=== PATIENT | male | born 1935 | race Hispanic/Latino ===

== ENCOUNTER 2018-07-01 17:10 | Emergency (ER) | payer MEDICARE ==
[~2018-07-01 17:10] MED LIST: ISOVUE-370 76%-LOCM 1 ML ONE
[2018-07-01 18:13] LABS: #Eosinphils 0.1 thou/uL (0.0-0.7); #Lymphocytes 1.5 thou/uL (1.20-3.40); #Monocytes 0.4 thou/uL (0.11-0.59); %Eosinophils 1.3 % (0.0-10.0); %Lymphocytes 21.1 % (21.0-51.0); %Monocytes 5.2 % (0.0-10.0); %Neutrophils 72.3 % (42.0-75.0); Hemoglobin 14.3 g/dL (14.0-18.0); Mean Corpuscular HGB CONC 33.6 g/dL (32.0-36.0); Mean Corpuscular Hemoglobin 27.8 pg (27.0-31.0); Mean Corpuscular Volume 82.8 fL (78.0-98.0); Mean Platelet Volume 6.8 fL (7.4-10.4); Platelet Count 237 thou/uL (130-400); RBC Distribution Width 13.8 % (11.5-14.5); Red Blood Cell (RBC) Count 5.12 mill/uL (4.70-6.10); White Blood Cell (WBC) Count 6.9 thou/uL (4.8-10.8)
[2018-07-01 18:38] LABS: ALT (SGPT) 30 U/L (8-55); AST (SGOT) 25 U/L (5-34); Albumin 4.7 g/dL (3.4-4.8); Alkaline Phosphatase 153 U/L (40-150); Anion Gap 17 mmol/L (10-20); BUN (Urea Nitrogen) 19 mg/dL (8.4-25.7); Bilirubin, Total 0.5 mg/dL (0.2-1.2); CK (CPK) 450 U/L (30-200); Calc. Creatinine Clearance 0 mL/min (70-130); Calcium 9.7 mg/dL (7.8-10.44); Carbon Dioxide 28 mmol/L (23-31); Chloride 95 mmol/L (98-107); Estimated GFR-MDRD 70; Globulin 4.2 g/dL (2.4-3.5); Glucose 201 mg/dL (83-110); Potassium 4.7 mmol/L (3.5-5.1); Protein, Total 8.9 g/dL (5.8-8.1); Sodium 135 mmol/L (136-145)
--- NOTE | 2018-07-01 19:40 | RAD ---
EXAM: CHEST TWO VIEWS: 07/01/18 HISTORY: Chest pain for two weeks. COMPARISON: None. FINDINGS: Heart size is within normal limits. Minimal increased markings in the right base which have more of a chronic appearance. No confluent pneumonia, overt edema, or pleural effusion. Mild dextroscoliosis o f the upper thoracic vertebral column. IMPRESSION: No acute intrathoracic disease. No evidence for pneumonia. Mild atherosclerosis of the aorta. POS: [facility]
[2018-07-01 21:43] LABS: Troponin I Less than 0.010 ng/mL (< 0.028)
--- NOTE | 2018-07-01 22:14 | CT ---
CHEST CT ANGIOGRAM WITH 3D RENDERING ABDOMEN CT ANGIOGRAM WITH 3D RENDERIN07/01/18 HISTORY: Intermittent chest pain for several months. Dizziness. CT angiogram chest and CT angiogram abdomen is performed including 3D rendering. There is a fairly prominent diffuse nonspecific mosaic appearance to the chest but without evidence f or overt confluent pneumonia, pleural effusion, or pericardial effusion. There is no evidence for aor tic aneurysm or dissection. No CT evidence for a central pulmonary artery thrombosis. Small hiatal he rnia. Right renal cyst. No evidence for abdominal aortic aneurysm or dissection. There are scattered areas of arterial vascular calcification. IMPRESSION: No CT evidence for aortic aneurysm or dissection. No central pulmonary artery thrombosis. No evidence of abdominal aortic aneurysm or dissection. Prominent nonspecific bilateral mosaic appearance to the chest. No confluent pneumonia or pleural effusion. Other findings as above. POS: [facility]
== END 2018-07-01 23:00 | disposition home or self-care (01) ==
LOC: ERS 17:10
DX: R07.89 Other chest pain (principal); E11.9 Type 2 diabetes mellitus without complications; Z79.82 Long term (current) use of aspirin; Z79.84 Long term (current) use of oral hypoglycemic drugs
CPT/HCPCS: 36415; 71046; 71275; 80053; 82550; 84484; 85025; 85379; 93005

== ENCOUNTER 2018-07-09 12:09 | Emergency (ER) | payer MEDICAID, MEDICARE ==
[2018-07-09] MEDS ORDERED: Lidocaine 2% Viscous Solution 10 ML, Aluminum & Magnesium Hydroxide 30 ML SSW SCH (13:00)
[2018-07-09 13:14] LABS: PTT 30.4 SEC (22.9-36.1)
[2018-07-09 13:15] LABS: #Eosinphils 0.1 thou/uL (0.0-0.7); #Lymphocytes 1.2 thou/uL (1.20-3.40); #Monocytes 0.4 thou/uL (0.11-0.59); #Neutrophils 5.3 thou/uL (1.40-6.50); %Basophils 0.1 % (0.0-1.0); %Eosinophils 0.9 % (0.0-10.0); %Monocytes 6.2 % (0.0-10.0); %Neutrophils 75.8 % (42.0-75.0); Hemoglobin 12.4 g/dL (14.0-18.0); Mean Corpuscular HGB CONC 33.7 g/dL (32.0-36.0); Mean Corpuscular Hemoglobin 28.1 pg (27.0-31.0); Mean Corpuscular Volume 83.5 fL (78.0-98.0); Mean Platelet Volume 5.1 fL (7.4-10.4); Platelet Count 187 thou/uL (130-400); RBC Distribution Width 14.1 % (11.5-14.5); Red Blood Cell (RBC) Count 4.42 mill/uL (4.70-6.10)
[2018-07-09 13:29] LABS: ALT (SGPT) 26 U/L (8-55); AST (SGOT) 21 U/L (5-34); Alkaline Phosphatase 138 U/L (40-150); Anion Gap 15 mmol/L (10-20); BUN (Urea Nitrogen) 16 mg/dL (8.4-25.7); Bilirubin, Total 0.4 mg/dL (0.2-1.2); Calc. Creatinine Clearance 0 mL/min (70-130); Calcium 9.1 mg/dL (7.8-10.44); Carbon Dioxide 26 mmol/L (23-31); Chloride 95 mmol/L (98-107); Estimated GFR-MDRD 67; Globulin 3.4 g/dL (2.4-3.5); Glucose 242 mg/dL (83-110); Lipase 100 U/L (8-78); Potassium 4.5 mmol/L (3.5-5.1); Protein, Total 7.4 g/dL (5.8-8.1); Sodium 131 mmol/L (136-145)
[2018-07-09 13:44] LABS: INR-International Normal Ratio 1.1; Prothrombin Time 14.2 SEC (12.0-14.7)
--- NOTE | 2018-07-09 13:55 | RAD ---
CHEST 1 VIEW: Date: 07/09/18 COMPARISON: 04/28/18 study. HISTORY: Chest pain. FINDINGS: Heart size is borderline. Aorta is tortuous. The lungs are clear of any infiltrative process. IMPRESSION: Borderline heart size. No acute findings. POS: [facility]
== END 2018-07-09 15:44 | disposition home or self-care (01) ==
LOC: ERS 12:09
DX: K29.70 Gastritis, unspecified, without bleeding (principal); R07.89 Other chest pain; E11.9 Type 2 diabetes mellitus without complications; I10 Essential (primary) hypertension
CPT/HCPCS: 36415; 71045; 80053; 83605; 83690; 83880; 84484; 85025; 85610; 85730; 93005

== ENCOUNTER 2018-07-13 12:59 | Emergency (ER) | payer MEDICARE ==
--- NOTE | 2018-07-13 15:28 | RAD ---
PA CHEST: Date: 07/13/18 HISTORY: Nausea and vomiting. FINDINGS: Lung coronado are clear. Heart and mediastinum unremarkable. Vasculature is normal. IMPRESSION: Unremarkable chest. POS: C
[2018-07-13 15:31] LABS: #Eosinphils 0.1 thou/uL (0.0-0.7); #Lymphocytes 1.2 thou/uL (1.20-3.40); #Monocytes 0.6 thou/uL (0.11-0.59); #Neutrophils 5.4 thou/uL (1.40-6.50); %Basophils 0.2 % (0.0-1.0); %Lymphocytes 17.1 % (21.0-51.0); %Monocytes 7.7 % (0.0-10.0); Hemoglobin 13.4 g/dL (14.0-18.0); Mean Corpuscular Hemoglobin 28.4 pg (27.0-31.0); Mean Corpuscular Volume 86.2 fL (78.0-98.0); Mean Platelet Volume 7.5 fL (7.4-10.4); Platelet Count 204 thou/uL (130-400); RBC Distribution Width 14.7 % (11.5-14.5); Red Blood Cell (RBC) Count 4.72 mill/uL (4.70-6.10); White Blood Cell (WBC) Count 7.3 thou/uL (4.8-10.8)
[2018-07-13 15:41] LABS: ALT (SGPT) 29 U/L (8-55); AST (SGOT) 25 U/L (5-34); Albumin 4.3 g/dL (3.4-4.8); Alkaline Phosphatase 115 U/L (40-150); Anion Gap 18 mmol/L (10-20); BUN (Urea Nitrogen) 22 mg/dL (8.4-25.7); Bilirubin, Total 0.8 mg/dL (0.2-1.2); Calc. Creatinine Clearance 0 mL/min (70-130); Calcium 8.7 mg/dL (7.8-10.44); Carbon Dioxide 22 mmol/L (23-31); Chloride 95 mmol/L (98-107); Estimated GFR-MDRD 70; Globulin 3.6 g/dL (2.4-3.5); Glucose 196 mg/dL (83-110); Lipase 52 U/L (8-78); Potassium 4.4 mmol/L (3.5-5.1); Protein, Total 7.9 g/dL (5.8-8.1); Sodium 131 mmol/L (136-145)
--- NOTE | 2018-07-16 23:34 | EKG ---
Test Reason : Blood Pressure : / mmHG Vent. Rate : 077 BPM Atrial Rate : 077 BPM P-R Int : 148 ms QRS Dur : 088 ms QT Int : 386 ms P-R-T Axes : 025 002 018 degrees QTc Int : 436 ms Normal sinus rhythm with sinus arrhythmia Normal ECG Confirmed by YAKOV BIRCH DO ([id number]), editorial assistant VIJAYA PAYNE ([id number]) on 07/16/2018 11:33:30 PM Referred By: Confirmed By:YAKOV BIRCH DO
== END 2018-07-13 17:27 | disposition home or self-care (01) ==
LOC: ERS 12:59
DX: R11.2 Nausea with vomiting, unspecified (principal); N50.819 Testicular pain, unspecified; R05 Cough; E11.9 Type 2 diabetes mellitus without complications; I10 Essential (primary) hypertension
CPT/HCPCS: 36415; 71045; 80053; 83690; 84484; 85025; 93005

== ENCOUNTER 2018-08-16 12:55 | Outpatient (CLI) | payer MEDICARE ==
[~2018-08-16 12:55] MED LIST changes: -ISOVUE-370 76%-LOCM 1 ML ONE; +Iopamidol 370 76% 100 ML VIAL ONE
--- NOTE | 2018-08-16 14:09 | RAD ---
TWO VIEWS CHEST: Comparison: 07-13-18 History: Abdominal pain. FINDINGS: Two views of the chest show normal sized cardiomediastinal silhouette. There is no evidence of consol idation, mass, or pleural effusion. The bones are unremarkable. IMPRESSION: No evidence of acute cardiopulmonary disease. POS: [facility]
--- NOTE | 2018-08-16 14:28 | RAD ---
KUB: History: Abdominal pain. FINDINGS: The bowel gas pattern is nonobstructed. There is a moderate amount stool within the right colon. No r adiopaque calculi are seen. Vascular calcifications are noted. Surgical clips are seen in the pelvis. Marked arthritic changes of the spine are present. IMPRESSION: No acute changes. POS: [facility]
--- NOTE | 2018-08-16 15:56 | CT ---
CT OF ABDOMEN AND PELVIS PERFORMED WITH AND WITHOUT CONTRAST ENHANCEMENT: History: Abdominal pain, more right sided. Comparison: CT aortic dissection protocol, 07-01-18 which included the chest and abdomen. FINDINGS: The lung bases show some ground glass opacity in both lung coronado. The liver, spleen, pancreas, and gallbladder regions all appear unremarkable. Right and left adrenal glands and right and left kidneys are normal in size. Small hypodense lesion i nvolving the right kidney is compatible with a small cyst. No renal calculi are seen. No significant periaortic or mesenteric adenopathy noted. The proximal jejunum is actually to the right of midline b ut there is no obstruction associated with this and it is a stable finding as compared to the prior e xamination. It would be of questionable clinical significance. CT OF PELVIS PERFORMED WITH AND WITHOUT CONTRAST ENHANCEMENT: No evidence of any adenopathy, mass, or free fluid. There are arthritic changes of the spine and hips noted. IMPRESSION: 1. No acute abnormality of the abdomen or pelvis. 2. Small right renal cyst. 3. Nonspecific ground glass opacity in both lung bases. 4. Small hiatal hernia. 5. Incidental is note is made of the jejunum and proximal ileum are actually to the right of midline in the right upper quadrant but there is no significant twisting in the mesentery vessels or signs of obstruction associated with this and would be somewhat doubtful as to being a cause of pain. POS: [facility]
[2018-08-19 08:26] LABS: Estimated GFR-MDRD - POC Greater than 90
== END 2018-08-16 12:56 | disposition home or self-care (01) ==
LOC: RAD 12:55
PROVIDERS: ATTEND Family Medicine
DX: R10.9 Unspecified abdominal pain (principal); N28.1 Cyst of kidney, acquired; R91.8 Other nonspecific abnormal finding of lung field; K44.9 Diaphragmatic hernia without obstruction or gangrene
CPT/HCPCS: 71046; 74018; 74178; Q9967

== ENCOUNTER 2018-10-04 10:20 | Day surgery (SDC) | payer MEDICARE ==
--- NOTE | 2018-10-04 10:52 | HP ---
HISTORY OF PRESENT ILLNESS: This is an 83-year-old male with abdominal pain, nausea. The patient complains of chronic dyspepsia and indigestion over the last several years. His symptoms are worse over the last one year. He has abdominal pain in the epigastric area. It is mild. It is localized. It is a moderate discomfort. He has a history of recurrent belching and bloating, etc. After he eats a few bites, he has abdominal discomfort, abdominal bloating and swelling. He is not able to eat a good meal because of the above reasons. The patient with dysphagia and odynophagia. He comes in for EGD because of chronic dyspepsia. ALLERGIES: NONE. SOCIAL HISTORY: The patient is a former smoker. He had chronic alcohol intake 20 years ago. MEDICAL ILLNESS: 1. Hypertension. 2. Diabetes. 3. Osteoarthritis. 4. Hyperlipidemia. 5. Acid reflux. 6. Muscle spasm. 7. Hernia repair and also has had a prostatectomy for noncancerous prostate enlargement. PHYSICAL EXAMINATION: GENERAL: He appears comfortable. VITAL SIGNS: His weight is 168 pounds. Pulse is 70, blood pressure 130/80. HEENT: Conjunctivae clear. NECK: Supple. No adenitis or thyromegaly noted. CARDIOVASCULAR: First and second heart sounds heard. LUNGS: Clear to auscultation. ABDOMEN: Soft. No organomegaly. Abdomen is mildly tender in the epigastric area. There is no rebound or guarding. Bowel sounds normal. ADMITTING DIAGNOSES: Abdominal pain, dyspepsia. PLAN: EGD and abdominal sonogram. Job ID: [id number]
[2018-10-04] MEDS ORDERED: PROPOFOL 200 MG/20 ML VIAL ONE (13:34)
--- NOTE | 2018-10-04 17:27 | OP ---
DATE OF PROCEDURE: 10/04/2018 PROCEDURE PERFORMED: Esophagogastroduodenoscopy with biopsy. PREOPERATIVE DIAGNOSIS: An 83-year-old male with abdominal pain, dyspepsia, and abdominal bloating. The patient is undergoing EGD. POSTOPERATIVE DIAGNOSES: 1. Normal esophagus. 2. Small hiatal hernia. 3. Sessile gastric polyp over the gastric body. 4. Antral gastritis. DESCRIPTION OF PROCEDURE: The patient was placed on his left lateral position and was given sedation by Anesthesia Department. Again, Pentax video gastroscope under direct vision passed down the oropharynx past the GE junction into the stomach and subsequently into the descending duodenum. The vocal cords appeared healthy. The esophageal mucosa appeared normal throughout. In the GE junction, no pathology was seen. A small hiatal hernia. Retroflexion failed to show any pathology in the fundus and cardia. Over the gastric body, the patient was found to have a 1-cm size sessile polyp. The polyp was removed with biopsy forceps. The gastric antrum showed focal areas of edema and erythema. Biopsy was obtained of the gastric antrum and the gastric body. In the duodenal bulb and descending duodenum, no pathology. The stomach decompressed, and the scope removed. IMPRESSION: This is an 83-year-old male with abdominal pain, dyspepsia, and abdominal bloating. The EGD showed a gastric polyp and antral gastritis. There is no other pathology seen. DISCHARGE PLANNIN. Obtain abdominal sonogram. 2. Await gastric biopsy before making recommendations. Job ID: [id number]
== END 2018-10-04 12:12 | disposition home or self-care (01) ==
LOC: SDC 10:20
PROVIDERS: ATTEND Internal Medicine Gastroenterology
PROC: 0DB68ZX Excision of Stomach, Via Natural or Artificial Opening Endoscopic, Diagnostic (ICD-10-PCS; principal; 2018-10-04)
DX: K31.7 Polyp of stomach and duodenum (principal); K29.50 Unspecified chronic gastritis without bleeding; K44.9 Diaphragmatic hernia without obstruction or gangrene; I10 Essential (primary) hypertension; E11.9 Type 2 diabetes mellitus without complications; M19.90 Unspecified osteoarthritis, unspecified site; E78.5 Hyperlipidemia, unspecified; K21.9 Gastro-esophageal reflux disease without esophagitis; Z87.891 Personal history of nicotine dependence
CPT/HCPCS: 88305; 88312; J2704

== ENCOUNTER 2019-02-14 18:05 | Observation (INO) | payer MEDICARE ==
[2019-02-14 18:46] LABS: #Eosinphils 0.3 thou/uL (0.0-0.7); #Lymphocytes 1.7 thou/uL (1.20-3.40); #Monocytes 0.6 thou/uL (0.11-0.59); #Neutrophils 5.8 thou/uL (1.40-6.50); %Basophils 0.1 % (0.0-1.0); %Eosinophils 3.7 % (0.0-10.0); %Monocytes 6.8 % (0.0-10.0); %Neutrophils 69.4 % (42.0-75.0); Hemoglobin 11.8 g/dL (14.0-18.0); Mean Corpuscular HGB CONC 34.1 g/dL (32.0-36.0); Mean Corpuscular Hemoglobin 28.2 pg (27.0-31.0); Mean Corpuscular Volume 82.6 fL (78.0-98.0); Mean Platelet Volume 6.9 fL (7.4-10.4); Platelet Count 282 thou/uL (130-400); RBC Distribution Width 14.4 % (11.5-14.5); Red Blood Cell (RBC) Count 4.21 mill/uL (4.70-6.10); White Blood Cell (WBC) Count 8.4 thou/uL (4.8-10.8)
--- NOTE | 2019-02-14 18:49 | RAD ---
CHEST ONE VIEW: 02/14/19 HISTORY: Chest pain. COMPARISON: Radiograph 08/16/18. FINDINGS: Heart size is enlarged. The pulmonary arteries are dilated. No pneumothorax. No effusion. No acute os seous abnormality. Degenerative changes of the shoulders. IMPRESSION: Cardiomegaly and pulmonary arterial hypertension. POS: [facility]
[2019-02-14 19:08] LABS: ALT (SGPT) 18 U/L (8-55); AST (SGOT) 15 U/L (5-34); Albumin 4.1 g/dL (3.4-4.8); Alkaline Phosphatase 118 U/L (40-150); Anion Gap 15 mmol/L (10-20); BUN (Urea Nitrogen) 19 mg/dL (8.4-25.7); Bilirubin, Total 0.4 mg/dL (0.2-1.2); Calc. Creatinine Clearance 0 mL/min (70-130); Calcium 9.2 mg/dL (7.8-10.44); Carbon Dioxide 22 mmol/L (23-31); Chloride 102 mmol/L (98-107); Estimated GFR-MDRD 52; Globulin 4.1 g/dL (2.4-3.5); Glucose 222 mg/dL (83-110); Potassium 4.3 mmol/L (3.5-5.1); Protein, Total 8.2 g/dL (5.8-8.1); Sodium 135 mmol/L (136-145)
[2019-02-14] MEDS ORDERED: Meclizine HCl 25 MG TAB ONE (19:14)
[2019-02-14] MEDS ORDERED: Aspirin 325 MG TAB ONE (19:14)
--- NOTE | 2019-02-14 19:21 | CT ---
CT Brain WO Con History: Vertigo Comparison: CT brain 2011 Findings: High-grade atrophy. No acute hemorrhage or infarct. No midline shift or mass effect. Paranasal sinuses and mastoids are clear. Scalp soft tissues are unremarkable. Impression: No acute intracranial abnormality.
--- NOTE | 2019-02-14 22:08 | HP ---
PRIMARY CARE PHYSICIAN: [facility]. REASON FOR ADMISSION: Dizziness and chest pain. HISTORY OF PRESENT ILLNESS: An 83-year-old male, who was brought to emergency room with a complaint of dizziness. Patient was brought to ER and subsequently, he was discharged. He also had chest pain. Patient was feeling as if drunk. He was not able to maintain his balance. He was experiencing nausea, but no vomiting. He denied any headache, blurred vision, or diplopia. He denies any tinnitus. He denies any ear pain. He was not having any focal motor weakness on either extremity or paresthesia in either extremity. This morning, he also reported chest pain which was generalized, associated with nausea, but no vomiting. He denied any radiation of pain. He denies any associated palpitation or shortness of breath. He did not have any fever, chills, cough, or UTI symptoms. He did not have any constipation, diarrhea, melena, or hematochezia. Today, in the emergency room, routine blood test showed acute kidney injury. He was relatively hypotensive. He was given IV fluid and after that he was feeling much better. Patient is being admitted for further evaluation. PAST MEDICAL HISTORY: Diabetes, type 2; hypertension; hiatal hernia; osteoarthritis; and gastroesophageal reflux disease. PAST SURGICAL HISTORY: EGD and colonoscopy by Dr. Mercer, prostatectomy, and hernia repair. PAST PSYCHIATRIC HISTORY: Reviewed and negative. SOCIAL HISTORY: Patient is a former smoker. He denies any tobacco or alcohol abuse currently. He lives at home with family. FAMILY HISTORY: No strong family history of premature coronary artery disease, stroke, or cancer. ALLERGIES: NO KNOWN DRUG ALLERGIES. CURRENT HOME MEDICATIONS: Patient did not bring his medications, so unable to review at this point. EMERGENCY ROOM COURSE: Patient received IV fluid, meclizine, and aspirin. REVIEW OF SYSTEMS: CONSTITUTIONAL: Negative for weight loss or gain, ability to conduct usual activities. SKIN: Negative for rash, itching. EYES: Negative for double vision, pain. ENT/MOUTH: Negative for nose bleeding, neck stiffness, pain, tenderness. CARDIOVASCULAR: Negative for palpitations, dyspnea on exertion, orthopnea. RESPIRATORY: Negative for shortness of breath, wheezing, cough, hemoptysis, fever or night sweats. GASTROINTESTINAL: Negative for poor appetite, abdominal pain, heartburn, nausea , vomiting, constipation, or diarrhea. GENITOURINARY: Negative for urgency, frequency, dysuria, nocturia. MUSCULOSKELETAL: Negative for pain, swelling. NEUROLOGIC/PSYCHIATRIC: Negative for anxiety, depression. ALLERGY/IMMUNOLOGIC: Negative for skin rash, bleeding tendency. Please see my HPI for pertinent positives and negatives. All other review of systems reviewed and negative except as mentioned in the HPI. PHYSICAL EXAMINATION: VITAL SIGNS: On arrival, blood pressure 82/57, pulse 94, respiratory rate 20, temperature 98.4, and saturation 96% on room air. Weight 81.6 kg. GENERAL: Patient is currently alert and oriented. No obvious acute distress. HEENT: Head; normocephalic and atraumatic. Eyes; pupils round and reactive to light. No nystagmus. Extraocular muscle intact. ENT; oropharynx within normal limits. Moist mucous membranes. No oral lesion. No pharyngeal erythema. No exudate. NECK: Supple. No JVD. No thyromegaly. No carotid bruit. No jugular venous distention. LUNGS: Clear to auscultation without any rhonchi or rales. CARDIAC: S1, S2 regular. No murmur. No gallop. No rub. ABDOMEN: Soft. Bowel sounds present. Nontender. Nondistended. No organomegaly. No mass. No suprapubic tenderness. BACK EXAMINATION: Unremarkable. No CVA tenderness. EXTREMITIES: Upper extremity; passive movement of all joints are normal. Lower extremity; no edema. Good distal pulsation. SKIN: No skin rash. HEMATOLOGICAL: No lymphadenopathy. PSYCHIATRIC: Normal affect. NEUROLOGIC: Patient is alert and oriented x3. Cranial nerves 2 through 12 intact. Motor 5/5 in all 4 limbs. Sensation intact. Reflexes symmetrical. No cerebellar signs noted. SIGNIFICANT LABORATORY DATA: EKG showing normal sinus rhythm, LVH. CT brain based on my review no acute intracranial process. Chest x-ray showing cardiomegaly and pulmonary arterial hypertension. CBC; WBC 8.4, hemoglobin 11.8, and platelet 282. BMP; sodium 135, potassium 4.3 , chloride 102, carbon dioxide 22, anion gap 15, BUN 19, creatinine 1.32, glucose 222, calcium 9.2, and magnesium 2.0. LFT; AST 15, ALT 18, alkaline phosphatase 118, and albumin 4.1. Troponin negative and BNP 30.2. ASSESSMENT AND PLAN: 1. Vertigo, most likely benign positional vertigo. The patient has responded to meclizine. Orthostatic hypotension is also in differential. Cerebellar etiology less likely, but patient has multiple risk factors for cerebellar etiology and that is why he will be admitted for observation to do more investigation. While in hospital, we will check orthostatic vitals to rule out orthostatic hypotension. We will obtain MRI brain and echocardiography as a part of workup to rule out any posterior circulation problem. We will continue with meclizine 25 mg p.o. t.i.d. p.r.n. Patient will need PT evaluation. We will also monitor on telemetry floor for rule out any arrhythmias. 2. Chest pain. We will do serial cardiac enzymes x3. Currently, troponin is negative. EKG is nondiagnostic. Patient will have another two sets of cardiac enzymes. We will check lipid profile, echocardiography, and we will continue with aspirin 325 mg p.o. daily. 3. Acute kidney injury, most likely due to hypotension. Patient will be given IV fluid with NS at 100 mL/h and we will repeat BMP tomorrow. 4. Diabetes, type 2. We will continue with insulin as per sliding scale protocol. Diabetic diet will be given. 5. History of hypertension. We will rule out orthostatic hypotension. Because of low blood pressure, we will hold on blood pressure medication. 6. Anemia, normocytic and normochromic. Patient will need multivitamin and iron supplement upon discharge. We will repeat CBC tomorrow. 7. Deep venous thrombosis prophylaxis not needed because we are expecting discharge in 24 hours. 8. Gastrointestinal prophylaxis. Pepcid 20 mg p.o. daily. CODE STATUS: Patient is full code. DISPOSITION PLAN: Based on above-mentioned investigation result. Plan of care discussed with the patient in detail. Job ID: [id number] [facility]
[2019-02-14 22:17] LABS: Troponin I Less than 0.010 ng/mL (< 0.028)
[2019-02-15] MEDS ORDERED: HumaLOG 300 UNITS/3 ML VIAL SC PRN (00:17)
[2019-02-15] MEDS ORDERED: Bisacodyl 10 MG SUPP PR PRN (00:17)
[2019-02-15] MEDS ORDERED: Meclizine HCl 25 MG TAB PO PRN (00:17)
[2019-02-15] MEDS ORDERED: Guaifenesin DM 100-10/5 ML UDCUP PO PRN (00:17)
[2019-02-15] MEDS ORDERED: Dextrose 5% in Water 1,000 ML IV PRN (00:17)
[2019-02-15] MEDS ORDERED: Loperamide HCl 2 MG CAP PO PRN (00:17)
[2019-02-15] MEDS ORDERED: Ondansetron PF 4 MG/2 ML Vial IVP PRN (00:17)
[2019-02-15] MEDS ORDERED: Senokot S 8.6-50 MG TAB PO PRN (00:17)
[2019-02-15] MEDS ORDERED: Dextrose 50% Abboject 50 ML SYRINGE SLOW IVP PRN (00:17)
[2019-02-15] MEDS ORDERED: HYDROcodone/Acetaminophen 5/325 mg Tablet PO PRN (00:17)
[2019-02-15] MEDS ORDERED: Ondansetron ODT 4 MG TAB PO PRN (00:17)
[2019-02-15] MEDS ORDERED: Acetaminophen 325 MG TAB PO PRN (00:17)
[2019-02-15] MEDS ORDERED: Calcium Carbonate 500 MG ChewTAB PO PRN (00:17)
[2019-02-15] MEDS ORDERED: Zolpidem Tartrate 5 MG TAB PO PRN (00:17)
[2019-02-15 01:41] LABS: Troponin I Less than 0.010 ng/mL (< 0.028)
[2019-02-15 02:13] VITALS: BMI 28.5
[2019-02-15 05:06] LABS: #Eosinphils 0.3 thou/uL (0.0-0.7); #Lymphocytes 1.7 thou/uL (1.20-3.40); #Monocytes 0.6 thou/uL (0.11-0.59); #Neutrophils 4.3 thou/uL (1.40-6.50); %Eosinophils 3.9 % (0.0-10.0); %Monocytes 8.3 % (0.0-10.0); %Neutrophils 62.8 % (42.0-75.0); Hemoglobin 9.9 g/dL (14.0-18.0); Mean Corpuscular Hemoglobin 28.2 pg (27.0-31.0); Mean Corpuscular Volume 83.1 fL (78.0-98.0); Mean Platelet Volume 6.8 fL (7.4-10.4); Platelet Count 190 thou/uL (130-400); RBC Distribution Width 14.3 % (11.5-14.5); Red Blood Cell (RBC) Count 3.49 mill/uL (4.70-6.10); White Blood Cell (WBC) Count 6.8 thou/uL (4.8-10.8)
[2019-02-15 05:25] LABS: Anion Gap 12 mmol/L (10-20); BUN (Urea Nitrogen) 27 mg/dL (8.4-25.7); Calc. Creatinine Clearance 56 mL/min (70-130); Calcium 8.6 mg/dL (7.8-10.44); Carbon Dioxide 24 mmol/L (23-31); Cardiac Risk 4.9 (Less than 4.5); Chloride 105 mmol/L (98-107); Cholesterol 141 mg/dl (< 200 Desired); Estimated GFR-MDRD 65; Glucose 215 mg/dL (83-110); HDL Cholesterol 29 mg/dL (>60 Neg Risk); LDL Cholesterol, Calculated 80 mg/dL; Potassium 3.9 mmol/L (3.5-5.1); Sodium 137 mmol/L (136-145); Triglycerides 160 mg/dL (Less than 150)
[2019-02-15] MEDS: Sodium Chloride 0.9% 1,000 ML IV SCH ×2 (06:09→19:04)
[2019-02-15] MEDS: HumaLOG 300 UNITS/3 ML VIAL SC PRN ×3 (06:09→17:39)
--- NOTE | 2019-02-15 08:41 | MRI ---
MRI BRAIN WITHOUT CONTRAST: INDICATIONS: Stroke. COMPARISON: Brain CT from 02/14/2019. FINDINGS: There is moderate cortical volume loss. Mild chronic ischemic white matter change. No evidence of r estricted diffusion. No mass or edema. No evidence of hemorrhage. The intracranial internal carotid arteries and cerebral arteries show expected flow voids. Basilar a rtery is patent. Dural venous sinuses appear patent. Mild mucosal edema in the left maxillary sinus. IMPRESSION: 1. Moderate cortical atrophy with mild chronic ischemic white matter change. 2. No evidence of acute infarct. POS: [facility]
[2019-02-15] MEDS ORDERED: Famotidine 20 MG TAB PO SCH (09:00)
[2019-02-15] MEDS ORDERED: Aspirin 325 MG TAB PO SCH (09:00)
[2019-02-15] MEDS ORDERED: Prevnar 13-Val Conj/PF 0.5 ML SYRINGE IM ONE (09:00)
[2019-02-15] MEDS ORDERED: Aspirin Chewable 81 MG TAB PO SCH (09:00)
[2019-02-15 13:39] LABS: Bilirubin Negative (Negative); Blood, Urine Negative (Negative); Clarity Clear (Clear); Glucose, Urine (Dipstick) 200 mg/dL (Negative); Leukocyte Negative Leu/uL (Negative); Mucous/LPF 1+ LPF (<2+); Nitrite Negative (Negative); Protein, Urine (Dipstick) Negative (Neg-Trace); RBC/HPF 0-3 HPF (0-3); Squamous Epithelial 0-3 HPF (0-3); Urobilinogen Normal mg/dL (Less than 2); WBC/HPF 0-3 HPF (0-3)
[2019-02-15 13:52] LABS: Bacteria/HPF None Seen HPF (None Seen)
[2019-02-15 15:27] VITALS: BP 119/67; TEMP 98.4
--- NOTE | 2019-02-15 16:41 | PDOC.HOSPP ---
- Subjective Encounter Date: 02/15/19 Subjective: Mr. Steve was seen today in follow-up of [facility]. He says he feels much better now. He does not have any dizziness. He believes he could have been dehydrated. - Objective Vital Signs & Weight: Vital Signs (12 hours) Temp Pulse Pulse Pulse Resp BP BP 02/15/19 15:26 98.4 F 72 20 02/15/19 11:40 97.9 F 76 20 02/15/19 09:20 67 70 155/64 H 150/69 H 02/15/19 07:50 98.3 F 65 16 BP BP BP Pulse Ox 02/15/19 15:26 119/67 95 02/15/19 11:40 120/62 96 02/15/19 09:20 02/15/19 07:50 110/65 140/78 123/74 93 L Weight Weight 166 lb 6 oz I&O: 02/14/19 02/15/19 02/16/19 06:59 06:59 06:59 Intake Total 800 360 Balance 800 360 Result Diagrams: 02/15/19 04:37 02/15/19 04:37 Additional Labs: Accuchecks 02/15/19 02/15/19 11:46 05:41 POC Glucose 240 H 199 H Hospitalist ROS - Medication Medications: Active Medications Generic Name Dose Route Start Last Admin Trade Name Freq PRN Reason Stop Dose Admin Acetaminophen 650 mg 02/15/19 00:17 02/15/19 06:06 Tylenol PO 650 mg Q4H PRN Administration Headache/Fever/Mild Pain (1-3) Aspirin 325 mg 02/15/19 09:00 02/15/19 10:08 Aspirin PO 325 mg DAILY SIVAN Administration Famotidine 20 mg 02/15/19 09:00 02/15/19 10:08 Pepcid PO 20 mg DAILY SIVAN Administration Sodium Chloride 1,000 mls @ 100 mls/hr 02/15/19 00:17 02/15/19 06:09 Normal Saline 0.9% IV 1,000 mls .Q10H SIVAN Administration Insulin Human Lispro 0 units 02/15/19 00:17 02/15/19 13:00 Humalog SC 4 unit .MODERATE SLIDING SC PRN Administration Moderate Correctional Scale - Exam Eye: PERRL, anicteric sclera Heart: RRR, no murmur, no gallops, no rubs, normal peripheral pulses Respiratory: CTAB, no wheezes, no rales, no ronchi, normal chest expansion, no tachypnea, normal percussion Gastrointestinal: soft, non-tender, non-distended, normal bowel sounds, no palpable masses, no hepatomegaly, no splenomegaly, no bruit Extremities: no cyanosis, no clubbing, no edema Hosp A/P (1) Benign paroxysmal positional vertigo Code(s): H81.10 - BENIGN PAROXYSMAL VERTIGO, UNSPECIFIED EAR Status: Acute (2) Dehydration Code(s): E86.0 - DEHYDRATION Status: Acute (3) Diabetes mellitus type 2 in nonobese Code(s): E11.9 - TYPE 2 DIABETES MELLITUS WITHOUT COMPLICATIONS Status: Chronic (4) Hypertension Code(s): I10 - ESSENTIAL (PRIMARY) HYPERTENSION Status: Chronic - Plan * Vertigo- improved- likely due to BPH, and dehydration * He is much improved after IV fluid administration * DM- will start Metformin, but he will anum to reconcile his medications with his Primary Care Provider at [facility] * Stable for discharge home.
--- NOTE | 2019-02-16 05:20 | DIS ---
DATE OF ADMISSION: 02/14/2019 DATE OF DISCHARGE: 02/15/2019 PRIMARY CARE PHYSICIAN: Through the [facility]. DISCHARGE DISPOSITION: Home. DISCHARGE DIAGNOSES: 1. Vertigo. 2. Dehydration. 3. Diabetes mellitus type 2. 4. Hypertension. 5. Hiatal hernia. 6. Gastroesophageal reflux disease. PROCEDURES DONE: During the admission, the patient had a CT scan of the brain, which was negative for any acute intracranial abnormalities. The patient also had an MRI of the brain, which was also negative except for some moderate cortical atrophy and mild chronic ischemic white matter change. The patient had an echocardiogram, in which the ejection fraction was estimated at 55% to 60% and there was grade 1/3 diastolic dysfunction. DISCHARGE MEDICATIONS: Metformin 500 mg twice daily. CODE STATUS: Full code. ALLERGIES: NO KNOWN DRUG ALLERGIES. HOSPITAL COURSE: Mr. Steve is a pleasant 83-year-old gentleman, who was admitted to the hospital complaining of dizziness and feeling weak, the full details of which are outlined in the history and physical. He was placed in observation and a stroke workup was undertaken. This was essentially negative. He was also given IV fluids in the ER with improvement in his symptomatology and it is suspected that the symptoms were likely related to benign positional vertigo as well as some superimposed dehydration. At the time of discharge, his symptoms had completely resolved. He was actually asking when he can go home. Unfortunately, the patient does not know what his medications were prior to being hospitalized. Therefore, we will discharge him only on metformin. His blood pressure was stable and ranged anywhere from between 120 to 110 systolic. His primary care can further adjust or change or add medications as needed as they feel appropriate. The patient is therefore discharged home in stable condition on 02/15/2019. Job ID: [id number]
== END 2019-02-15 19:40 | disposition home or self-care (01) ==
LOC: ERS 18:05 → 2SE 23:15
PROVIDERS: ADMIT Internal Medicine; ATTEND Internal Medicine
DX: H81.10 Benign paroxysmal vertigo, unspecified ear (principal); E86.0 Dehydration; E11.9 Type 2 diabetes mellitus without complications; R07.9 Chest pain, unspecified; I10 Essential (primary) hypertension; M19.90 Unspecified osteoarthritis, unspecified site; K21.9 Gastro-esophageal reflux disease without esophagitis; N17.9 Acute kidney failure, unspecified; D64.9 Anemia, unspecified; K44.9 Diaphragmatic hernia without obstruction or gangrene; Z87.891 Personal history of nicotine dependence
CPT/HCPCS: 70450; 70551; 71045; 80048; 80053; 80061; 81001; 82962; 83735; 83880; 84484 ×3; 85025 ×2; 93005; 93306; 96360; 96361 ×2; 97116; 97139; 99285; G0378 ×3; 36415; 36416; 90471; 90670; G0009; J8597

== ENCOUNTER 2019-03-01 15:03 | Observation (INO) | payer MEDICARE ==
[~2019-03-01 15:03] MED LIST changes: +ISOVUE-370 76%-LOCM 1 ML ONE; -Iopamidol 370 76% 100 ML VIAL ONE
[2019-03-01 15:51] LABS: #Eosinphils 0.1 thou/uL (0.0-0.7); #Monocytes 0.4 thou/uL (0.11-0.59); #Neutrophils 3.9 thou/uL (1.40-6.50); %Basophils 0.4 % (0.0-1.0); %Eosinophils 2.7 % (0.0-10.0); %Lymphocytes 17.7 % (21.0-51.0); %Monocytes 7.3 % (0.0-10.0); %Neutrophils 71.9 % (42.0-75.0); Hemoglobin 11.5 g/dL (14.0-18.0); Mean Corpuscular HGB CONC 33.2 g/dL (32.0-36.0); Mean Corpuscular Hemoglobin 27.4 pg (27.0-31.0); Mean Corpuscular Volume 82.6 fL (78.0-98.0); Mean Platelet Volume 6.6 fL (7.4-10.4); Platelet Count 188 thou/uL (130-400); RBC Distribution Width 14.1 % (11.5-14.5); Red Blood Cell (RBC) Count 4.19 mill/uL (4.70-6.10); White Blood Cell (WBC) Count 5.4 thou/uL (4.8-10.8)
[2019-03-01 16:10] LABS: ALT (SGPT) 22 U/L (8-55); AST (SGOT) 16 U/L (5-34); Albumin 4.2 g/dL (3.4-4.8); Alkaline Phosphatase 149 U/L (40-150); Anion Gap 11 mmol/L (10-20); BUN (Urea Nitrogen) 21 mg/dL (8.4-25.7); Bilirubin, Total 0.3 mg/dL (0.2-1.2); Calc. Creatinine Clearance 0 mL/min (70-130); Calcium 9.2 mg/dL (7.8-10.44); Carbon Dioxide 24 mmol/L (23-31); Chloride 102 mmol/L (98-107); Estimated GFR-MDRD 75; Globulin 3.6 g/dL (2.4-3.5); Glucose 207 mg/dL (83-110); Protein, Total 7.8 g/dL (5.8-8.1); Sodium 133 mmol/L (136-145)
--- NOTE | 2019-03-01 16:11 | RAD ---
AP CHEST: Date: 03/01/19 HISTORY: Dizziness. FINDINGS: Lungs are clear. No infiltrate. Heart size upper normal. No evidence of vascular congestion. No signi ficant effusion. No changed from 02/14/19. IMPRESSION: No acute findings. POS: [facility]
[2019-03-01] MEDS ORDERED: Aspirin Chewable 81 MG TAB ONE ×2 (16:57→16:58)
--- NOTE | 2019-03-01 17:37 | CT ---
CT ABDOMEN WITH CONTRAST CT PELVIS WITH CONTRAST: DATE: 03/01/2019 HISTORY: 83-year-old male with generalized abdominal pain TECHNIQUE: IV injection of iodinated contrast media: Administered Oral contrast media: FINDINGS: Liver: No focal solid mass. Spleen: No splenomegaly.. Pancreas: No mass or surrounding fat stranding.. Adrenals: No mass.. Kidneys: No hydronephrosis or enhancement abnormalities. 2 cm right renal cyst Ureters: No dilation. Bladder: No pathology identified. Abdominal aorta: No aneurysm. Small bowel: No dilation. Colon: No adjacent fat stranding. Appendix: No dilation or adjacent fat stranding.. Free air: None. Free fluid: None. IMPRESSION: 1. No major pathology identified.. 2. A 2 cm right renal cyst.
[2019-03-01 19:09] LABS: Troponin I Less than 0.010 ng/mL (< 0.028)
[2019-03-01 20:04] VITALS: BMI 28.3
--- NOTE | 2019-03-01 21:37 | PDOC.EVN ---
Event Note - Event Note Event Note: H&P dictated [id number]
[2019-03-01 22:24] LABS: Troponin I Less than 0.010 ng/mL (< 0.028)
--- NOTE | 2019-03-02 03:19 | HP ---
CHIEF COMPLAINT: Chest pain. HISTORY OF PRESENT ILLNESS: 83-year-old male with past medical history of hypertension, diabetes, presents to the emergency room with chest pain associated with dizziness for the last 3 days. The patient has been having intermittent chest pain on and off. Denies fever, chills. Also he has been having constipation. Initial workup in the emergency room including cardiac enzymes and EKG, no obvious findings. The patient is being admitted to the hospital for further management. PAST MEDICAL HISTORY: 1. Diabetes. 2. Hypertension. 3. Questionable heart problem. PAST SURGICAL HISTORY: 1. Hernia repair. 2. Prostate surgery. SOCIAL HISTORY: Denies alcohol drinking. He is a former smoker. ALLERGIES: NO KNOWN ALLERGIES. CURRENT MEDICATIONS: Please see home medication reconciliation form for medications. REVIEW OF SYSTEMS: CONSTITUTIONAL: No fever. No chills. EYES: No eye pain or discomfort. ENT: No runny nose. No headache. CARDIOVASCULAR: Complaining of chest pain. RESPIRATORY: Also complaining of shortness of breath with exertion. GASTROINTESTINAL: He has constipation and abdominal pain. GENITOURINARY: No hematuria. MUSCULOSKELETAL: No body aches or other joint pain. SKIN: No rash. No itching. NEUROLOGIC: He has dizziness. PHYSICAL EXAMINATION: GENERAL: The patient awake, alert, pleasant, does not appear to be in acute distress. VITAL SIGNS: Blood pressure 175/77, pulse 86, respiratory rate 17, temperature 97.4. The patient is afebrile. HEENT: Head and neck; normocephalic and atraumatic. NECK: Supple. CHEST: Fair bilateral air entry. HEART: S1, S2 regular. ABDOMEN: Soft, distended. Bowel sounds present. NEUROLOGIC: NEUROLOGIC: Awake, alert, and oriented x3. PSYCHIATRIC: Normal mood. EXTREMITIES: No clubbing or cyanosis. SKIN: No rash. SIGNIFICANT LABORATORY DATA: EKG showed sinus rhythm with premature atrial complexes, nonspecific ST and T-wave changes. ASSESSMENT AND PLAN: 1. Acute chest pain, rule out acute coronary syndrome. 2. Hypertension. 3. Diabetes mellitus. 4. Constipation. PLAN: 1. Admit. 2. Telemonitoring. 3. Aspirin. 4. Serial cardiac enzymes. 5. Reassess patient in a.m. May need to have cardiac stress test which could be done inpatient/outpatient, possibly assess him in the morning, especially if his chest pain symptoms persist. 6. DVT prophylaxis, early ambulation. 7. Reconcile home medications. EXPECTED LENGTH OF STAY: One midnight if patient is stable and further workup negative. Job ID: [id number]
[2019-03-02] MEDS ORDERED: Aspirin 325 mg Enteric Coated Tablet PO SCH (09:00)
[2019-03-02] MEDS ORDERED: Bisacodyl 5 MG TAB PO SCH (09:15)
--- NOTE | 2019-03-02 14:39 | NM ---
EXAM: NM Cardiac Stress W EF WF PROVIDED CLINICAL HISTORY: Chest pain COMPARISON: 04/29/2018 FINDINGS: Pharmacologic myocardial stress test was performed with adenosine. No significant reversible defect i s seen between the stress and resting acquisitions on SPECT imaging. Uptake of radiotracer within the left ventricular myocardium is unchanged compared to the prior exam in 2018. Images demonstrate m ild hypokinesis involving the septum and inferior wall. Calculated left ventricular ejection fraction is 60%. The LVEF on prior study in 2018 was 63%. IMPRESSION: 1. Normal myocardial perfusion study without evidence of a reversible defect seen to suggest ischemia . 2. Normal LVEF of 60%. 3. Myocardial perfusion study is similar to prior study in 2018.
[2019-03-02] MEDS ORDERED: Magnesium Citrate 300 ML BOT PO SCH (15:15)
[2019-03-02 16:07] VITALS: BP 176/89; TEMP 97.6
[2019-03-02] MEDS ORDERED: ADENOSINE 60 MG/20 ML VIAL ONE (16:54)
[2019-03-03] MEDS ORDERED: Polyethylene Glycol 3350 17 GM Packet PO SCH (09:00)
--- NOTE | 2019-03-04 03:55 | DIS ---
DATE OF ADMISSION: 03/01/2019 DATE OF DISCHARGE: 03/02/2019 DISCHARGE DIAGNOSES: As of the followin. Chest pain. 2. Hypertension. 3. Constipation. 4. Diabetes. HOSPITAL COURSE: The patient is an 83-year-old male, who initially presented to the hospital on 03/01 with complaints of chest pain. The patient also stated that he has been significantly constipated and has not had a bowel movement. He also had some dizziness lasting for about 3 days. The patient underwent a cardiac evaluation. His troponins x3 were negative. He underwent a stress test, which was essentially unchanged from his previous test. It stated a normal EF of 60% and his myocardial perfusion study was similar to 2018. The patient also was given some Mag citrate for constipation and he was discharged home. 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 HOME MEDICATIONS: Has been resumed. He is going to be on, 1. Metformin 500 mg b.i.d. 2. Jardiance 10 mg daily. 3. Atorvastatin 80 mg daily. 4. Lasix 20 mg b.i.d. 5. Isosorbide 30 mg daily. 6. Meloxicam 50 mg daily. 7. Metoprolol 25 daily. 8. Altace 5 mg p.o. daily. PHYSICAL EXAMINATION: VITAL SIGNS: Temperature 97.6, 91, 20, 95% on room air, 134/62. GENERAL: He is awake, alert, and oriented x3. Does not appear in distress. CV: S1, S2 present. No murmurs, rubs, or gallops. ABDOMEN: Soft and nontender. Bowel sounds are present x2. EXTREMITIES: No edema. Again, he will be discharged home. He will follow up with his primary and also cardiology. Job ID: [id number]
--- NOTE | 2019-03-04 14:56 | EKG ---
Test Reason : CHESTPAIN Blood Pressure : / mmHG Vent. Rate : 083 BPM Atrial Rate : 083 BPM P-R Int : 156 ms QRS Dur : 090 ms QT Int : 346 ms P-R-T Axes : 023 -02 050 degrees QTc Int : 406 ms Sinus rhythm with Premature atrial complexes Inferior infarct , age undetermined Abnormal ECG Confirmed by GALINA Flores, YVROSE ([id number]), editorial manager SANJEEV PEACE ([id number]) on 03/04/2019 2:56:22 PM Referred By: [facility] [place] Confirmed By:YVROSE MOJICA M.D.
== END 2019-03-02 19:16 | disposition home or self-care (01) ==
LOC: ERS 15:03 → 2SW 18:27
PROVIDERS: ADMIT Internal Medicine; ATTEND Internal Medicine
DX: R07.9 Chest pain, unspecified (principal); I10 Essential (primary) hypertension; E11.9 Type 2 diabetes mellitus without complications; K59.00 Constipation, unspecified; Q61.01 Congenital single renal cyst; Z87.891 Personal history of nicotine dependence; Z79.84 Long term (current) use of oral hypoglycemic drugs; Z79.899 Other long term (current) drug therapy
CPT/HCPCS: 71045; 74177; 78452; 80053; 82962 ×2; 83605; 83880; 84484 ×2; 85025; 93005; 93017; 94760 ×2; 96360; 96361; 99285; A9500; G0378 ×3; 36415; 36416; J0153; Q9966